=== PATIENT | female | born 1930 | race Caucasian/White ===

== ENCOUNTER 2016-06-21 10:18 | Outpatient (CLI) | payer MEDICARE, OTHER | END 2016-06-21 10:19 | disposition home or self-care (01) | DX: Z86.718 Personal history of other venous thrombosis and embolism (principal) ==

== ENCOUNTER 2016-07-03 10:42 | Outpatient (CLI) | payer MEDICARE, OTHER | END 2016-07-03 10:43 | disposition home or self-care (01) | DX: Z86.718 Personal history of other venous thrombosis and embolism (principal) ==

== ENCOUNTER 2016-07-25 09:34 | Outpatient (CLI) | payer MEDICARE, OTHER | END 2016-07-25 09:35 | disposition home or self-care (01) | DX: Z86.718 Personal history of other venous thrombosis and embolism (principal) ==

== ENCOUNTER 2016-08-21 08:00 | Outpatient (CLI) | payer MEDICARE, OTHER | END 2016-08-21 08:01 | disposition home or self-care (01) | DX: Z86.718 Personal history of other venous thrombosis and embolism (principal) ==

== ENCOUNTER 2016-09-11 08:00 | Outpatient (CLI) | payer MEDICARE, OTHER | END 2016-09-11 08:01 | DX: Z86.718 Personal history of other venous thrombosis and embolism (principal) ==

== ENCOUNTER 2016-10-09 08:00 | Outpatient (CLI) | payer MEDICARE, OTHER | END 2016-10-09 08:01 | disposition home or self-care (01) | DX: Z86.718 Personal history of other venous thrombosis and embolism (principal) ==

== ENCOUNTER 2016-10-23 09:00 | Outpatient (CLI) | payer MEDICARE, OTHER | END 2016-10-23 09:01 | disposition home or self-care (01) | LOC: LAB.N 09:00 | PROVIDERS: ATTEND Physician Assistant | DX: Z86.718 Personal history of other venous thrombosis and embolism (principal) | CPT/HCPCS: 85610 ==

== ENCOUNTER 2016-11-20 08:00 | Outpatient (CLI) | payer MEDICARE, OTHER | END 2016-11-20 08:01 | disposition home or self-care (01) | LOC: LAB.N 08:00 | PROVIDERS: ATTEND Physician Assistant | DX: Z86.718 Personal history of other venous thrombosis and embolism (principal) | CPT/HCPCS: 85610 ==

== ENCOUNTER 2016-12-20 10:16 | Outpatient (CLI) | payer MEDICARE, OTHER | END 2016-12-20 10:17 | disposition home or self-care (01) | LOC: LAB.N 10:16 | PROVIDERS: ATTEND Physician Assistant | DX: Z86.718 Personal history of other venous thrombosis and embolism (principal) | CPT/HCPCS: 85610 ==

== ENCOUNTER 2017-02-26 09:57 | Outpatient (CLI) | payer MEDICARE, OTHER | END 2017-02-26 09:58 | disposition home or self-care (01) | LOC: LAB.N 09:57 | PROVIDERS: ATTEND Physician Assistant | DX: Z86.718 Personal history of other venous thrombosis and embolism (principal) | CPT/HCPCS: 85610 ==

== ENCOUNTER 2017-03-05 08:00 | Outpatient (CLI) | payer MEDICARE, OTHER | END 2017-03-05 08:01 | disposition home or self-care (01) | LOC: LAB.N 08:00 | PROVIDERS: ATTEND Physician Assistant | DX: Z86.718 Personal history of other venous thrombosis and embolism (principal) | CPT/HCPCS: 85610 ==

== ENCOUNTER 2017-03-19 09:08 | Outpatient (CLI) | payer MEDICARE, OTHER | END 2017-03-19 09:09 | disposition home or self-care (01) | LOC: LAB.N 09:08 | PROVIDERS: ATTEND Physician Assistant | DX: Z86.718 Personal history of other venous thrombosis and embolism (principal) | CPT/HCPCS: 85610 ==

== ENCOUNTER 2017-04-16 08:14 | Outpatient (CLI) | payer MEDICARE, OTHER | END 2017-04-16 08:15 | LOC: LAB.N 08:14 | PROVIDERS: ATTEND Physician Assistant | DX: Z86.718 Personal history of other venous thrombosis and embolism (principal) | CPT/HCPCS: 85610 ==

== ENCOUNTER 2017-05-02 09:18 | Outpatient (CLI) | payer MEDICARE, OTHER | END 2017-05-02 09:19 | disposition home or self-care (01) | LOC: LAB.N 09:18 | PROVIDERS: ATTEND Physician Assistant | DX: Z86.718 Personal history of other venous thrombosis and embolism (principal) | CPT/HCPCS: 85610 ==

== ENCOUNTER 2017-05-14 08:00 | Outpatient (CLI) | payer MEDICARE, OTHER | END 2017-05-14 08:01 | disposition home or self-care (01) | LOC: LAB.N 08:00 | PROVIDERS: ATTEND Physician Assistant | DX: Z86.718 Personal history of other venous thrombosis and embolism (principal) | CPT/HCPCS: 85610 ==

== ENCOUNTER 2017-05-21 08:00 | Outpatient (CLI) | payer MEDICARE, OTHER | END 2017-05-21 08:01 | disposition home or self-care (01) | LOC: LAB.N 08:00 | PROVIDERS: ATTEND Physician Assistant | DX: Z86.718 Personal history of other venous thrombosis and embolism (principal) | CPT/HCPCS: 85610 ==

== ENCOUNTER 2017-05-29 08:00 | Outpatient (CLI) | payer MEDICARE, OTHER | END 2017-05-29 08:01 | LOC: LAB.N 08:00 | PROVIDERS: ATTEND Physician Assistant | DX: Z86.718 Personal history of other venous thrombosis and embolism (principal) | CPT/HCPCS: 85610 ==

== ENCOUNTER 2017-06-11 08:00 | Outpatient (CLI) | payer MEDICARE, OTHER | END 2017-06-11 08:01 | disposition home or self-care (01) | LOC: LAB.N 08:00 | PROVIDERS: ATTEND Physician Assistant | DX: Z86.718 Personal history of other venous thrombosis and embolism (principal) | CPT/HCPCS: 85610 ==

== ENCOUNTER 2017-07-16 08:00 | Outpatient (CLI) | payer MEDICARE, OTHER | END 2017-07-16 08:01 | disposition home or self-care (01) | LOC: LAB.N 08:00 | PROVIDERS: ATTEND Physician Assistant | DX: Z86.718 Personal history of other venous thrombosis and embolism (principal) | CPT/HCPCS: 85610 ==

== ENCOUNTER 2017-08-13 09:00 | Outpatient (CLI) | payer MEDICARE, OTHER | END 2017-08-13 09:01 | disposition home or self-care (01) | LOC: LAB.N 09:00 | PROVIDERS: ATTEND Physician Assistant | DX: Z86.718 Personal history of other venous thrombosis and embolism (principal) | CPT/HCPCS: 85610 ==

== ENCOUNTER 2017-08-27 09:23 | Outpatient (CLI) | payer MEDICARE, OTHER | END 2017-08-27 09:24 | disposition home or self-care (01) | LOC: LAB.N 09:23 | PROVIDERS: ATTEND Physician Assistant | DX: Z86.718 Personal history of other venous thrombosis and embolism (principal) | CPT/HCPCS: 85610 ==

== ENCOUNTER 2017-09-11 09:53 | Outpatient (CLI) | payer MEDICARE, OTHER | END 2017-09-11 09:54 | disposition home or self-care (01) | LOC: LAB.N 09:53 | PROVIDERS: ATTEND Physician Assistant | DX: Z86.718 Personal history of other venous thrombosis and embolism (principal) | CPT/HCPCS: 85610 ==

== ENCOUNTER 2017-10-01 08:00 | Outpatient (CLI) | payer MEDICARE, OTHER | END 2017-10-01 08:01 | LOC: LAB.N 08:00 | PROVIDERS: ATTEND Physician Assistant | DX: Z86.718 Personal history of other venous thrombosis and embolism (principal) | CPT/HCPCS: 85610 ==

== ENCOUNTER 2017-11-05 08:00 | Outpatient (CLI) | payer MEDICARE, OTHER | END 2017-11-05 08:01 | disposition home or self-care (01) | LOC: LAB.N 08:00 | PROVIDERS: ATTEND Physician Assistant | DX: Z86.718 Personal history of other venous thrombosis and embolism (principal) | CPT/HCPCS: 85610 ==

== ENCOUNTER 2017-12-27 08:00 | Outpatient (CLI) | payer MEDICARE, OTHER | END 2017-12-27 08:01 | disposition home or self-care (01) | LOC: LAB.N 08:00 | PROVIDERS: ATTEND Physician Assistant | DX: Z86.718 Personal history of other venous thrombosis and embolism (principal) | CPT/HCPCS: 85610 ==

== ENCOUNTER 2018-01-30 09:41 | Outpatient (CLI) | payer MEDICARE, OTHER | END 2018-01-30 09:42 | disposition home or self-care (01) | LOC: LAB.N 09:41 | PROVIDERS: ATTEND Physician Assistant | DX: Z86.718 Personal history of other venous thrombosis and embolism (principal) | CPT/HCPCS: 85610 ==

== ENCOUNTER 2018-02-27 10:21 | Outpatient (CLI) | payer MEDICARE, OTHER | END 2018-02-27 10:22 | LOC: LAB.N 10:21 | PROVIDERS: ATTEND Physician Assistant | DX: Z86.718 Personal history of other venous thrombosis and embolism (principal) | CPT/HCPCS: 85610 ==

== ENCOUNTER 2018-03-06 09:47 | Outpatient (CLI) | payer MEDICARE, OTHER | END 2018-03-06 09:48 | disposition home or self-care (01) | LOC: LAB.N 09:47 | PROVIDERS: ATTEND Physician Assistant | DX: Z86.718 Personal history of other venous thrombosis and embolism (principal) | CPT/HCPCS: 85610 ==

== ENCOUNTER 2018-03-13 09:32 | Outpatient (CLI) | payer MEDICARE, OTHER | END 2018-03-13 09:33 | disposition home or self-care (01) | LOC: LAB.N 09:32 | PROVIDERS: ATTEND Physician Assistant | DX: Z86.718 Personal history of other venous thrombosis and embolism (principal) | CPT/HCPCS: 85610 ==

== ENCOUNTER 2018-04-29 08:00 | Outpatient (CLI) | payer MEDICARE, OTHER | END 2018-04-29 08:01 | LOC: LAB.N 08:00 | PROVIDERS: ATTEND Physician Assistant | DX: Z86.718 Personal history of other venous thrombosis and embolism (principal) | CPT/HCPCS: 85610 ==

== ENCOUNTER 2018-07-21 08:00 | Outpatient (CLI) | payer MEDICARE, OTHER | END 2018-07-21 23:59 | disposition home or self-care (01) | LOC: LAB.N 08:00 | PROVIDERS: ATTEND Physician Assistant | DX: Z86.718 Personal history of other venous thrombosis and embolism (principal) | CPT/HCPCS: 85610 ==

== ENCOUNTER 2018-08-19 08:00 | Outpatient (CLI) | payer MEDICARE, OTHER | END 2018-08-19 23:59 | disposition home or self-care (01) | LOC: LAB.N 08:00 | PROVIDERS: ATTEND Physician Assistant | DX: Z86.718 Personal history of other venous thrombosis and embolism (principal) | CPT/HCPCS: 85610 ==

== ENCOUNTER 2018-09-03 11:37 | Outpatient (CLI) | payer MEDICARE, OTHER | END 2018-09-03 23:59 | disposition home or self-care (01) | LOC: LAB.N 11:37 | PROVIDERS: ATTEND Physician Assistant | DX: Z86.718 Personal history of other venous thrombosis and embolism (principal) | CPT/HCPCS: 85610 ==

== ENCOUNTER 2018-09-16 08:00 | Outpatient (CLI) | payer MEDICARE, OTHER | END 2018-09-16 23:59 | disposition home or self-care (01) | LOC: LAB.N 08:00 | PROVIDERS: ATTEND Physician Assistant | DX: Z86.718 Personal history of other venous thrombosis and embolism (principal) | CPT/HCPCS: 85610 ==

== ENCOUNTER 2018-09-30 08:00 | Outpatient (CLI) | payer MEDICARE, OTHER | END 2018-09-30 23:59 | disposition home or self-care (01) | LOC: LAB.N 08:00 | PROVIDERS: ATTEND Physician Assistant | DX: Z86.718 Personal history of other venous thrombosis and embolism (principal) | CPT/HCPCS: 85610 ==

== ENCOUNTER 2018-10-16 09:13 | Outpatient (CLI) | payer MEDICARE, OTHER | END 2018-10-16 23:59 | disposition home or self-care (01) | LOC: LAB.N 09:13 | PROVIDERS: ATTEND Physician Assistant | DX: Z86.718 Personal history of other venous thrombosis and embolism (principal) | CPT/HCPCS: 85610 ==

== ENCOUNTER 2018-10-30 08:00 | Outpatient (CLI) | payer MEDICARE, OTHER | END 2018-10-30 23:59 | disposition home or self-care (01) | LOC: LAB.N 08:00 | PROVIDERS: ATTEND Physician Assistant | DX: Z86.718 Personal history of other venous thrombosis and embolism (principal) | CPT/HCPCS: 85610 ==

== ENCOUNTER 2018-11-06 10:14 | Outpatient (CLI) | payer MEDICARE, OTHER | END 2018-11-06 23:59 | disposition home or self-care (01) | LOC: LAB.N 10:14 | PROVIDERS: ATTEND Physician Assistant | DX: Z86.718 Personal history of other venous thrombosis and embolism (principal) | CPT/HCPCS: 85610 ==

== ENCOUNTER 2018-11-20 08:00 | Outpatient (CLI) | payer MEDICARE, OTHER | END 2018-11-20 23:59 | disposition home or self-care (01) | LOC: LAB.N 08:00 | PROVIDERS: ATTEND Physician Assistant | DX: Z86.718 Personal history of other venous thrombosis and embolism (principal) | CPT/HCPCS: 85610 ==

== ENCOUNTER 2018-12-02 10:29 | Outpatient (CLI) | payer MEDICARE, OTHER | END 2018-12-02 23:59 | disposition home or self-care (01) | LOC: LAB.N 10:29 | PROVIDERS: ATTEND Physician Assistant | DX: Z86.718 Personal history of other venous thrombosis and embolism (principal) | CPT/HCPCS: 85610 ==

== ENCOUNTER 2019-03-12 08:00 | Outpatient (CLI) | payer MEDICARE, OTHER | END 2019-03-12 23:59 | disposition home or self-care (01) | LOC: LAB.N 08:00 | PROVIDERS: ATTEND Physician Assistant | DX: Z86.718 Personal history of other venous thrombosis and embolism (principal) | CPT/HCPCS: 85610 ==

== ENCOUNTER 2019-05-19 10:27 | Outpatient (CLI) | payer MEDICARE, OTHER | END 2019-05-19 23:59 | disposition home or self-care (01) | LOC: LAB.N 10:27 | PROVIDERS: ATTEND Physician Assistant | DX: Z86.718 Personal history of other venous thrombosis and embolism (principal) | CPT/HCPCS: 85610 ==

== ENCOUNTER 2019-07-09 09:24 | Outpatient (CLI) | payer MEDICARE, OTHER | END 2019-07-09 23:59 | disposition home or self-care (01) | LOC: LAB.N 09:24 | PROVIDERS: ATTEND Physician Assistant | DX: Z86.718 Personal history of other venous thrombosis and embolism (principal) | CPT/HCPCS: 85610 ==

== ENCOUNTER 2019-08-14 07:59 | Outpatient (CLI) | payer MEDICARE, OTHER | END 2019-08-14 23:59 | disposition home or self-care (01) | LOC: LAB.N 07:59 | PROVIDERS: ATTEND Physician Assistant | DX: Z86.718 Personal history of other venous thrombosis and embolism (principal) | CPT/HCPCS: 85610 ==